=== PATIENT | male | born 1970 | race Caucasian/White ===

== ENCOUNTER 2018-03-13 23:58 | Emergency (ER) | payer OTHER, BC ==
[2018-03-14 03:02] LABS: BILIRUBIN, URINE NEG (NEG); BLOOD, URINE NEG (NEG); GLUCOSE,URINE NEG (NEG); KETONE, URINE NEG (NEG); NITRITE,URINE NEG (NEG); URINE COLOR YELLOW (YELLW/STRAW); URINE LEUKOCYTE ESTERASE NEG (NEG)
[2018-03-14 03:14] LABS: MUCUS URINE MOD /lpf (OCC)
[2018-03-14 03:15] LABS: COMMENT (UR) CULT NOT INDICATED; CULTURE IF INDICATED CULT NOT INDICATED; WBC, URINE 0-2 /hpf (0-5)
[2018-03-14] MEDS: KETOROLAC TROMETHAMINE 60 MG/2 ML (IM) VIAL IM (03:42)
== END 2018-03-14 04:07 | disposition home or self-care (01) ==
LOC: PHED 23:58
DX: M62.830 Muscle spasm of back (principal); N20.0 Calculus of kidney; Z79.82 Long term (current) use of aspirin; Z79.899 Other long term (current) drug therapy
CPT/HCPCS: 71046; 74176; 81001; 96372; 99285